=== PATIENT | male | born 1955 ===

== ENCOUNTER 2017-11-26 09:32 | Day surgery (SDC) | payer BC ==
[2017-11-23 13:09] VITALS: BMI 37.8
[2017-11-26 10:11] LABS: BASO # 0.06 K/mm3 (0.0-2.0); BASO % 0.5 % (0.0-3.0); EOS # 0.7 (0.0-0.7); GRAN # 8.1 (1.4-6.5); GRAN % 70.1 % (50.0-68.0); HEMOGLOBIN 13.8 g/dL (14.0-18.0); LYMPH % 17.5 % (22.0-35.0); MEAN CELL VOLUME 88.2 fl (80.0-105.0); MEAN CORPUSCULAR HEMOGLOBIN 29.6 pg (25.0-35.0); MEAN CORPUSCULAR HGB CONC 33.6 g/dl (31.0-37.0); MEAN PLATELET VOLUME 10.2 fl (7.0-11.0); MONO # 0.7 (0.1-0.6); MONO % 5.9 % (1.0-6.0); RBC 4.66 10^6/uL (3.5-6.1); RED CELL DISTRIBUTION WIDTH 13.2 % (11.5-14.5); WHITE BLOOD COUNT 11.6 10^3/ul (4.5-11.0)
[2017-11-26 10:22] LABS: INR 1.08 (0.93-1.08); PROTHROMBIN TIME 12.4 SECONDS (9.4-12.5)
[2017-11-26 10:23] LABS: PARTIAL THROMBOPLASTIN TIME 32.1 Seconds (25.1-36.5)
[2017-11-26 10:45] LABS: BLOOD UREA NITROGEN 26 mg/dL (7-21); CALCIUM 9.5 mg/dL (8.4-10.5); GFR AFRICAN-AMERICAN > 60; GFR NON-AFRICAN AMERICAN 51
[2017-11-26] MEDS ORDERED: Midazolam 2 MG/2 ML VIAL ONE (11:03)
[2017-11-26] MEDS ORDERED: Lidocaine 1% Inj (20ml) ONE (11:04)
[2017-11-26] MEDS ORDERED: Sodium Chloride 0.45% 1,000 ML IV SCH (12:00)
[2017-11-26 12:55] VITALS: RESP 18; TEMP 98.1
[2017-11-26 13:33] VITALS: BP 112/74; PULSE 86; O2SAT 95
--- NOTE | 2017-11-26 14:45 | US ---
PROCEDURE: Ultrasound-guided right thyroid fine needle aspiration biopsy. CLINICAL HISTORY: Multiple thyroid nodules. Dominant right nodule. Evaluate for malignancy PHYSICIAN(S): Teo Chen M.D. TECHNIQUE: The relative risks and indications for the procedure were explained to the patient through a lead refiner and consent obtained. The patient was placed supine on the stretcher with the neck extended and preliminary sonography of the thyroid performed. The evaluation is limited by body habitus and difficulty extending the neck. Multiple nodule are not appreciated in the thyroid. It was a subtle right nodule with punctate calcification. This was selected for biopsy. The neck was prepped and draped in the usual sterile fashion. Conscious sedation and monitoring were provided throughout the procedure by a nurse. 1% Xylocaine was used to anesthetize the skin and soft tissues at the access site. Three passes with a 22-gauge needle were performed under ultrasound guidance for fine needle aspiration of the subtle 1.5 cm right thyroid nodule with punctate calcification. The slides were reviewed by pathology and deemed adequate. The patient tolerated the procedure well. IMPRESSION: 1. Ultrasound guided fine needle aspiration of a 1.5 cm subtle nodule with calcification in the right thyroid.
== END 2017-11-26 13:48 | disposition home or self-care (01) ==
LOC: SDS 09:32
PROVIDERS: ATTEND Radiology Vascular & Interventional Radiology
DX: E04.2 Nontoxic multinodular goiter (principal); I10 Essential (primary) hypertension
CPT/HCPCS: 10022; 36415; 80048; 85025; 85610; 85730; 88173; 88305; J2250; J2405; J3010; J7030